=== PATIENT | male | born 1990 | race Caucasian/White ===

== ENCOUNTER 2020-06-14 22:09 | Emergency (ER) | payer OTHER ==
[~2020-06-14] VITALS: Ht 188 cm; Wt 85.7 kg
== END 2020-06-14 23:02 | disposition home or self-care (01) ==
LOC: ER 22:09
DX: Z20.828 Contact with and (suspected) exposure to other viral communicable diseases (principal)

== ENCOUNTER 2022-03-25 09:44 | Outpatient (CLI) | payer OTHER | END 2022-03-25 09:57 | disposition home or self-care (01) | LOC: MRI 09:44 | PROVIDERS: ATTEND Psychiatry & Neurology Clinical Neurophysiology | DX: I67.1 Cerebral aneurysm, nonruptured (principal) | CPT/HCPCS: 70551 ==